=== PATIENT | female | born 1980 | race Caucasian/White ===

== ENCOUNTER → 2017-06-04 | Outpatient (CLI) | payer OTHER ==
[~2017-06-04] MED LIST: BIRTH CONTROL; DIAMOX 250MG250 MG PO; NORVASC 5MG5 MG/TAB PO
== END ==
LOC: COL.VAS 07:54
DX: I77.89 Other specified disorders of arteries and arterioles (principal); E87.6 Hypokalemia

== ENCOUNTER → 2017-06-16 | Outpatient (CLI) | payer OTHER | LOC: COL.RAD 08:27 | DX: I16.0 Hypertensive urgency (principal); R79.89 Other specified abnormal findings of blood chemistry ==

== ENCOUNTER → 2017-08-12 | Outpatient (CLI) | payer OTHER | LOC: COL.RAD 10:57 | DX: R59.1 Generalized enlarged lymph nodes (principal) ==

== ENCOUNTER → 2017-08-20 | Outpatient (CLI) | payer OTHER | LOC: COL.RAD 08:19 | DX: I12.9 Hypertensive chronic kidney disease with stage 1 through stage 4 chronic kidney disease, or unspecified chronic kidney disease (principal); N18.1 Chronic kidney disease, stage 1; I70.1 Atherosclerosis of renal artery; I70.0 Atherosclerosis of aorta | CPT/HCPCS: Q9967 ==